=== PATIENT | male | born 1980 | race Caucasian/White ===

== ENCOUNTER 2024-06-05 09:58 | Emergency (ER) | payer SELFPAY ==
[2024-06-05 10:11] VITALS: BP 117/79
[2024-06-05 10:42] LABS: % Basophils 0.6 % (0-2); % Eosinophils 0.9 % (0-6); % Immature Granulocytes 0.2 % (0-0.5); % Lymphocytes 15.5 % (20.5-51.1); % Monocytes 6.9 % (1.7-9.3); % Neutrophils 75.9 % (42.2-75.2); Absolute Basophils 0.1 10^3/uL (0-0.2); Absolute Eosinophils 0.1 10^3/uL (0-0.7); Absolute Lymphocytes 1.3 10^3/uL (1.2-3.4); Absolute Monocytes 0.6 10^3/uL (0.1-0.6); Absolute Neutrophils 6.1 10^3/uL (1.4-6.5); Hematocrit 39.4 % (39.0-52.0); Hemoglobin 13.3 g/dL (13.0-18.0); Mean Corp Hgb Conc. 33.8 g/dL (33.0-37.0); Mean Corpuscular Volume 88.7 fL (80.0-94.0); Mean Platelet Volume 8.6 fL (7.4-10.4); Nucleated Red Blood Cells % 0 % (-); Platelet Count 286 10^3/uL (130-400); Red Blood Cell Count 4.44 10^6/uL (4.70-6.10); Red Cell Dist. Width 12.8 % (11.5-14.5); White Blood Cell Count 8.1 10^3/uL (4.8-10.8)
[2024-06-05 10:57] LABS: COVID-19 Antigen Negative (Negative)
[2024-06-05 10:58] LABS: ALT (SGPT) 13 U/L (0-50); AST (SGOT) 22 U/L (17-59); Albumin 4.2 g/dl (3.5-5.0); Alkaline Phosphatase 49 U/L (38-126); Blood Urea Nitrogen 10 mg/dl (9-20); Calcium 9.7 mg/dl (8.4-10.2); Carbon Dioxide 32 mmol/L (22-30); Chloride 101 mmol/L (98-107); Glucose 105 mg/dl (70-99); Sodium 140 mmol/L (135-145); Total Bilirubin 0.3 mg/dl (0.2-1.3); Total Protein 7.1 g/dl (6.3-8.2); eGFR > 60.00
--- NOTE | 2024-06-05 12:59 | ED.GENMED ---
History of Present Illness
General
Chief Complaint: Breathing Problem
Source: patient and family
Exam Limitations: none
Time Seen by Provider: 06/05/24 12:59
History of Present Illness
History of Present Illness:
44-year-old male complaining of cough myalgias had a sore throat that resolved. Symptoms have persisted. Started 2 weeks ago. No pleuritic pain mild shortness of breath at times. Cough with some yellow sputum. Patient is on testosterone for
Klinefelter syndrome. Also in his car significantly and drove from [place] recently. No leg pain or leg swelling.
Past History
Past History
ED Past Medical History: Other (Klinefelter syndrome)
ED Past Surgical History: Urological and Other (Dental)
Review of Systems
Review of Systems
All Other Systems: Not applicable
Cardiac: Denies chest pain or syncope
ABD/GI: Reports no symptoms
Phy Exam
Physical Exam
Physical Exam:
GENERAL: Alert and oriented in no apparent distress
EYE: Orbits normal.
NECK: Supple, no significant adenopathy.
ENT: Pharynx without erythema
CARDIAC: Regular rate and rhythm without any obvious murmurs.
LUNGS: Clear breath sounds,normal
ABDOMEN: Soft, without focal tenderness or distention
NEUROLOGICAL: Alert and oriented , grossly non-focal
SKIN: Warm and dry, no rash or lesion, no discoloration, skin intact.
MUSCULOSKELETAL: No edema,no deformity.Good color
PSYCH: Normal and appropriate interaction.
Course
Orders/Labs/Results
Orders:
Orders
06/05/24 10:17
Electrocardiogram (*1) Urgent
Reason for Study: Other
Other Reason for Exam: Respiratory Distress
EKG- Treatment ONCE
CR Chest - 2 Views Urgent
Comment:
Reason For Exam: respiratory distress
06/05/24 10:33
COVID-19 Antigen Urgent
Source: Nasal Swab
Complete Blood Count/With Diff Urgent
Comprehensive Metabolic Panel Urgent
Influenza A+B Rapid Molecular Urgent
DEON Source: Nasal Swab
Specimen Description:
06/05/24 13:17
D-Dimer Urgent
Abnormal Lab Results
06/05/24
10:33
RBC 4.44 L 10^6/uL
(4.70-6.10)
Neutrophils % 75.9 H %
(42.2-75.2)
Lymphocytes % 15.5 L %
(20.5-51.1)
Carbon Dioxide 32 H mmol/L
(22-30)
Glucose 105 H mg/dl
(70-99)
06/05/24 10:33
06/05/24 10:33
Vital Signs
Initial and Last Documented VS:
Initial Vital Signs
Temp Pulse Resp BP Pulse Ox
99.1 F 95 16 117/79 98
06/05/24 10:11 06/05/24 10:11 06/05/24 10:11 06/05/24 10:11 06/05/24 10:11
Last Documented Vital Signs
Temp Pulse Resp BP Pulse Ox
99.1 F 95 16 117/79 98
06/05/24 10:11 06/05/24 10:11 06/05/24 10:11 06/05/24 10:11 06/05/24 10:11
MDM/Problems Addressed
Differential Diagnosis Includes:
Most suspicious that this is just all a slightly atypical prolonged flu. No indication for antivirals. However patient did take a long trip, and is on estrogens. Also slightly atypical presentation of the flu given time course. Will do D-dimer
to rule out PE. If that is all negative would consider coverage for secondary bacterial infection. Discussed this with patient and mom.
*Pulse Oximetry
Patient hypoxic: no
*EKG
Interpreted by ED Provider?: Yes
Interpretation: abnormal
Comparison EKG: no comparison EKG present
Heart Rate: 79
Rate: normal
Rhythm: sinus
[place]: normal axis
Interval: normal interval
QRS Pattern: right bundle branch block (inc)
Ischemia: no ischemia
*Critical Care Note
Total Time (30-74mins, 75-104mins- exclusive of procedures): Not Applicable
ED Attending Note
-
Portions of this chart may have been created with voice recognition software.� Occasional wrong word or��sound alike� substitutions may have occurred due to the inherent limitations of voice recognition software.
Discharge Plan
Departure
Patient Disposition: Home (Routine Discharge)
Date of Disposition: 06/05/24
Time of Disposition: 14:20
Patient with high blood pressure during this ER visit?: No
Discharge Problem:
Influenza
Instructions: Flu, Adult ED
Prescriptions:
New
doxycycline hyclate 100 mg capsule
100 mg PO BID 10 Days Qty: 20 0RF
Referrals:
NONE,* [Family Provider] -
Activity Restrictions/Additional Instructions:
I suspect your symptoms are all from the influenza. However as we discussed there is the possibility of an early secondary bacterial infection.
I gave you prescription for doxycycline. If the symptoms have not improved in 1 to 2 days I would recommend starting it.
Return with any concerning symptoms including increased cough shortness of breath high fever or if symptoms have not resolved soon
Interventions
Interventions:
*Risk Screen - Suicide Last Done: 06/05/24 10:11
*General Assessment Last Done: 06/05/24 10:11
*Neglect/Abuse Screening Last Done: 06/05/24 10:11
*ED COVID-19 Vaccine History Last Done: 06/05/24 12:06
ED- Cardiac Assessment Last Done: 06/05/24 12:07
ED- Pulmonary Assessment Last Done: 06/05/24 12:07
Discharge Date and Time
Print Language: [place]
[2024-06-05 14:07] LABS: D-Dimer < 0.27 ug/mlFEU (0.00-0.50)
[2024-06-05 14:31] VITALS: BP 111/75
== END 2024-06-05 14:35 | disposition home or self-care (01) ==
LOC: EMR 09:58
PROVIDERS: Emergency Medicine; EMERGENCY PHYSICIAN Emergency Medicine
DX: J10.1 Influenza due to other identified influenza virus with other respiratory manifestations (principal); Q98.4 Klinefelter syndrome, unspecified
CPT/HCPCS: 99283; 71046; 80053; 85025; 85379; 87502; 87811; 93005